=== PATIENT | female | born 1940 | race Caucasian/White ===

== ENCOUNTER 2016-10-31 16:19 | Inpatient (IN) | payer MEDICARE ==
[~2016-10-31] VITALS: Ht 170.2 cm; Wt 76.2 kg
[~2016-10-31 16:19] MED LIST: ALL220TA PO; ATOR10 PO; CENTTAB9 PO; FISH300C2 PO; LORT5TAB PO; MELO15TA2 PO; META800 PO; OYST500T77 PO
[2016-10-31 16:21] VITALS: BP 200/98; PULSE 76; RESP 17; TEMP 98.5; O2SAT 96
[2016-10-31] MEDS ORDERED: blood pressure pill (16:35)
[2016-10-31] MEDS ORDERED: LIPI10TA PO (16:35)
--- NOTE | 2016-10-31 16:36 | PD ---
HPI Chief Complaint: Neuro Symptoms/ Deficits Time Seen by Provider: 16:34 Travel History International Travel<30 days: No Contact w/Intl Traveler<30days: No Traveled to known affect area: No History of Present Illness HPI The patient is a 76-year-old female who presents to the emergency department for nearly diagnosed brain tumor. The patient states that she was having difficulty walking and was walking like a "drunk", would walk to the right, when she went and saw her physician and had an outpatient MRI. The patient's primary physician is Dr. Kandi Bruce. The patient had an outpatient MRI that was performed on October 31, 2016 at 2:51 PM, was advised to come the emergency department if she has an occipital brain tumor. The patient was referred to the emergency department to be evaluated by the neurosurgeon, Dr. Corona. The patient does have a history of hypertension and hyperlipidemia. She denies any weakness or numbness of the upper or lower extremities, denies any difficulty with complex task of the upper hands, simply states that she had difficulty walking at times. The patient does have a remote history of breast cancer with previous left mastectomy. The patient symptoms are moderate, apparently exacerbated by and newly diagnosed brain tumor, and there are no current alleviating factors. PFSH Past Medical History Arthritis: Yes Blood Disorders: No Cancer: Yes (BREAST) Cardiovascular Problems: Yes High Cholesterol: Yes Chemotherapy: Yes Chest Pain: Yes Diminished Hearing: No Endocrine: No Genitourinary: No Immune Disorder: No Musculoskeletal: Yes Neurologic: No Psychiatric: No Reproductive: No Past Surgical History AICD: No Gynecologic Surgery: Yes Hysterectomy: Yes Joint Replacement: No Pacemaker: No Other Surgery: Yes (LEFT MASTECTOMY 1996, PART OF COLON REMOVED 2005 ) Social History Alcohol Use: Yes (WINE OCCASIONALLY) Tobacco Use: No Substance Use: No Allergies-Medications (Allergen,Severity, Reaction): Coded Allergies: No Known Allergies (Verified , 01/02/07) Reported Meds & Prescriptions Reported Meds & Active Scripts Active Reported [blood pressure pill] DAILY Lipitor (Atorvastatin Calcium) 10 Mg Tab 10 Mg PO HS Review of Systems Except as stated in HPI: all other systems reviewed are Neg General / Constitutional: No: Fever HENT: No: Headaches Cardiovascular: No: Chest Pain or Discomfort Respiratory: No: Shortness of Breath Gastrointestinal: No: Nausea, Vomiting, Abdominal Pain Genitourinary: No: Incontinence Neurologic: Positive: Ataxia, No: Headache, Paresthesia, Sensory Disturbance Physical Exam Narrative GENERAL: Awake, alert, very pleasant 76-year-old female who appears her stated age and is in no acute respiratory distress. SKIN: Focused skin assessment warm/dry. HEAD: Atraumatic. Normocephalic. EYES: Pupils equal and round. No scleral icterus. No injection or drainage. ENT: No nasal bleeding or discharge. Mucous membranes pink and moist. NECK: Trachea midline. No JVD. CARDIOVASCULAR: Regular rate and rhythm. No murmur appreciated. RESPIRATORY: No accessory muscle use. Clear to auscultation. Breath sounds equal bilaterally. GASTROINTESTINAL: Abdomen soft, non-tender, nondistended. Hepatic and splenic margins not palpable. MUSCULOSKELETAL: No obvious deformities. No clubbing. No cyanosis. No edema. NEUROLOGICAL: Awake and alert. No obvious cranial nerve deficits. Motor grossly within normal limits. Normal speech. Finger to nose is normal. Patient is able to ambulate in a straight line toward me in the room. She is alert and oriented 4. PSYCHIATRIC: Appropriate mood and affect; insight and judgment normal. Data Data Last Documented VS Vital Signs Date Time Temp Pulse Resp B/P Pulse Ox O2 Delivery O2 Flow Rate FiO2 10/31/16 16:21 98.5 76 17 200/98 96 Orders Complete Blood Count With Diff (10/31/16 16:36) Comprehensive Metabolic Panel (10/31/16 16:36) Act Partial Throm Time (Ptt) (10/31/16 16:36) Prothrombin Time / Inr (Pt) (10/31/16 16:36) Type And Screen (10/31/16 16:36) Electrocardiogram (10/31/16 ) Chest, Single Ap (10/31/16 ) Dexamethasone Inj (Decadron Inj) (10/31/16 16:45) Consult Neurosurgery (10/31/16 ) Admit To Inpatient (10/31/16 ) Code Status (10/31/16 16:50) Vital Signs (Adult) Q4H (10/31/16 16:50) Activity Bed Rest (10/31/16 16:50) Diet Heart Healthy (10/31/16 Dinner) Sodium Chloride 0.9% Flush (Ns Flush) (10/31/16 17:00) Sodium Chloride 0.9% Flush (Ns Flush) (10/31/16 21:00) Acetaminophen (Tylenol) (10/31/16 17:00) Ondansetron Inj (Zofran Inj) (10/31/16 17:00) Comprehensive Metabolic Panel (11/01/16 06:00) Complete Blood Count With Diff (11/01/16 06:00) Pt Request For Service (10/31/16 16:50) Case Management Consult (10/31/16 16:50) Scd Bilateral/Knee High MAYE.BID (10/31/16 16:50) Serg Bilateral/Knee High MAYE.QSHIFT (10/31/16 16:50) Acetaminophen (Tylenol) (10/31/16 17:00) Naloxone Inj (Narcan Inj) (10/31/16 17:00) Inpatient Certification (10/31/16 ) Dexamethasone Inj (Decadron Inj) (11/01/16 09:00) Hydralazine Inj (Apresoline Inj) (10/31/16 17:00) Ct Thorax/ Chest W Iv Contrast (10/31/16 ) Ct Abd/Pel W Iv Contrast(Rout) (10/31/16 ) Pantoprazole Inj (Protonix Inj) (11/01/16 09:00) (Hub Use Only)Inp Phy Cons/Ref (10/31/16 ) Admit Order (Ed Use Only) (10/31/16 17:35) Labs Laboratory Tests Test 10/31/16 16:45 White Blood Count 11.5 TH/MM3 Red Blood Count 4.25 MIL/MM3 Hemoglobin 13.0 GM/DL Hematocrit 39.9 % Mean Corpuscular Volume 94.0 FL Mean Corpuscular Hemoglobin 30.7 PG Mean Corpuscular Hemoglobin 32.7 % Concent Red Cell Distribution Width 13.9 % Platelet Count 276 TH/MM3 Mean Platelet Volume 9.3 FL Neutrophils (%) (Auto) 55.4 % Lymphocytes (%) (Auto) 35.9 % Monocytes (%) (Auto) 7.0 % Eosinophils (%) (Auto) 1.3 % Basophils (%) (Auto) 0.4 % Neutrophils # (Auto) 6.3 TH/MM3 Lymphocytes # (Auto) 4.1 TH/MM3 Monocytes # (Auto) 0.8 TH/MM3 Eosinophils # (Auto) 0.2 TH/MM3 Basophils # (Auto) 0.0 TH/MM3 CBC Comment DIFF FINAL Differential Comment Prothrombin Time 10.0 SEC Prothromb Time International 0.9 RATIO Ratio Activated Partial 21.2 SEC Thromboplast Time Total Bilirubin 0.6 MG/DL Alkaline Phosphatase 68 U/L Total Protein 8.4 GM/DL Blood Type A POSITIVE Antibody Screen NEGATIVE [facility] Medical Decision Making Medical Screen Exam Complete: Yes Emergency Medical Condition: Yes Medical Record Reviewed: Yes Interpretation(s) Last Impressions Chest X-Ray 10/31/16 0000 Signed Impressions: Service Date/Time: Monday, October 31, 2016 17:17 - CONCLUSION: 1. Medial right apical parenchymal opacity which may reflect pneumonia in the appropriate clinical setting. Followup to resolution is recommended to exclude mass. Tucker Day MD EKG reveals normal sinus rhythm with a rate of 65. No ischemic changes or ectopy noted. Laboratory Tests Test 10/31/16 16:45 White Blood Count 11.5 TH/MM3 Red Blood Count 4.25 MIL/MM3 Hemoglobin 13.0 GM/DL Hematocrit 39.9 % Mean Corpuscular Volume 94.0 FL Mean Corpuscular Hemoglobin 30.7 PG Mean Corpuscular Hemoglobin 32.7 % Concent Red Cell Distribution Width 13.9 % Platelet Count 276 TH/MM3 Mean Platelet Volume 9.3 FL Neutrophils (%) (Auto) 55.4 % Lymphocytes (%) (Auto) 35.9 % Monocytes (%) (Auto) 7.0 % Eosinophils (%) (Auto) 1.3 % Basophils (%) (Auto) 0.4 % Neutrophils # (Auto) 6.3 TH/MM3 Lymphocytes # (Auto) 4.1 TH/MM3 Monocytes # (Auto) 0.8 TH/MM3 Eosinophils # (Auto) 0.2 TH/MM3 Basophils # (Auto) 0.0 TH/MM3 CBC Comment DIFF FINAL Differential Comment Prothrombin Time 10.0 SEC Prothromb Time International 0.9 RATIO Ratio Activated Partial 21.2 SEC Thromboplast Time Total Bilirubin 0.6 MG/DL Alkaline Phosphatase 68 U/L Total Protein 8.4 GM/DL Blood Type A POSITIVE Antibody Screen NEGATIVE Differential Diagnosis Differential diagnosis includes brain tumor, occipital infarct, brainstem infarct, pontine edema lysis, hyponatremia, metastatic cancer. Narrative Course IV was established, labs are drawn and sent, and the patient was placed on cardiac telemetry monitoring and continuous pulse oximetry monitoring. Preop labs were obtained including a PT/INR, PTT, EKG, chest x-ray, and type and screen. I discussed the patient with the neurosurgeon, Dr. Corona, in the emergency department. I reviewed the patient's MRI that she had performed on October 31, 2016. The patient will be kept nothing by mouth, was administered Decadron 8 mg intravenously after discussion with Dr. Corona. A call was placed to [facility], who covers for Dr. Kandi Bruce, for admission. Physician Communication Physician Communication I discussed the patient with Dr. Corona who is aware that the patient is in the emergency department. A call was placed to [facility] for admission. I discussed the patient with Dr. Emery who agrees with admission. Diagnosis Primary Impression: Brain mass Admitting Information Admitting Physician Requests: Admit Condition: Stable Justino Otero MD Oct 31, 2016 16:35
[2016-10-31] MEDS ORDERED: DEXAMETHASONE SOD PHOS 4 MG/ML VIAL IV PUSH ONE (16:45)
--- NOTE | 2016-10-31 16:57 | HHI.HP ---
[facility] Service [facility] Primary Care Physician Kandi Bruce MD Admission Diagnosis Diagnoses: (1) Brain mass (2) Benign labile hypertension (3) Hyperlipidemia Chief Complaint: unsteady on her heet Travel History International Travel<30 Days: No Contact w/Intl Traveler <30 Da: No Traveled to Known Affected Are: No History of Present Illness 76-year-old female with a history of breast cancer was seen today ED by her PCP for evaluation of abnormal brain MRI with finding of a brain mass. Patient states, 2 days ago she woke up feeling generally weak associated with some malaise throughout the day and she also noticed some unsteady gait with ambulation however has no dizziness, vertigo or lightheadedness. On Monday, 06/17 she continued to feel weak and tired with more persistent gait unsteadiness. Today, 10/31/16 patient decided to go see her PCP will send her for MRI of the brain. With the finding of brain mass, patient was sent to the ED for further evaluation. She denies feeling sick, shortness of breath or chest pain. She has no visual change or headaches. Review of Systems Except as stated in HPI: all other systems reviewed are Neg Past Family Social History Past Medical History Arthritis: Yes Blood Disorders: No Cancer: Yes (BREAST) Cardiovascular Problems: Yes High Cholesterol: Yes Chemotherapy: Yes Past Surgical History Hysterectomy: Yes Other Surgery: Yes (LEFT MASTECTOMY 1996, PART OF COLON REMOVED 2005 ) Allergies: Coded Allergies: No Known Allergies (Verified , 01/02/07) Social History Alcohol Use: Yes (WINE OCCASIONALLY) Tobacco Use: No Substance Use: No Physical Exam Vital Signs Vital Signs Date Time Temp Pulse Resp B/P Pulse Ox O2 Delivery O2 Flow Rate FiO2 10/31/16 16:21 98.5 76 17 200/98 96 Physical Exam GENERAL: This is a well-nourished, well-developed patient, in no apparent distress. SKIN: No rashes, ecchymoses or lesions. Cool and dry. HEAD: Atraumatic. Normocephalic. No temporal or scalp tenderness. EYES: Pupils equal round and reactive. Extraocular motions intact. No scleral icterus. No injection or drainage. ENT: Nose without bleeding, purulent drainage or septal hematoma. Throat without erythema, tonsillar hypertrophy or exudate. Uvula midline. Airway patent. NECK: Trachea midline. No JVD or lymphadenopathy. Supple, nontender, no meningeal signs. CARDIOVASCULAR: Regular rate and rhythm without murmurs, gallops, or rubs. RESPIRATORY: Clear to auscultation. Breath sounds equal bilaterally. No wheezes , rales, or rhonchi. GASTROINTESTINAL: Abdomen soft, non-tender, nondistended. No hepato-splenomegaly , or palpable masses. No guarding. MUSCULOSKELETAL: Extremities without clubbing, cyanosis, or edema. No joint tenderness, effusion, or edema noted. No calf tenderness. Negative Homans sign bilaterally. NEUROLOGICAL: Awake and alert. Cranial nerves II through XII intact. Motor and sensory grossly within normal limits. Five out of 5 muscle strength in all muscle groups. Normal speech. Imaging Outside brain MRI 10/31/16: The study reveals an approximately 28 mm diameter by 37 mm height probable partial cystic lesion at the left cerebellar hemisphere extending to the anterior vermis. There is compression of the fourth ventricle but no significant hydrocephalus. The lesion abuts the brainstem without significant brainstem compression. There is anterior displacement of the cervical medullary junction. Last Impressions Chest X-Ray 10/31/16 0000 Signed Impressions: Service Date/Time: Monday, October 31, 2016 17:17 - CONCLUSION: 1. Medial right apical parenchymal opacity which may reflect pneumonia in the appropriate clinical setting. Followup to resolution is recommended to exclude mass. Tucker Day MD Assessment and Plan Problem List: (1) Brain mass ICD Code: G93.9 Status: Acute (2) Benign labile hypertension ICD Code: I10 Status: Acute (3) Hyperlipidemia ICD Code: E78.5 Status: Acute Assessment and Plan 76-year-old female with Left cerebellar lesion, Brain MRI review by me with finding of impinging on the fourth ventricle without sign of hydrocephalus Patient with a history of breast cancer therefore will check chest CT, CT abdomen/pelvic Consult neurosurgery as well as medical oncology Start Decadron IV scheduled PT consult to treat and eval Labile benign hypertension Start Lopressor 25 mg every 12 hours Hyperlipidemia Resume statin 10 mg at bedtime DVT prophylaxis: Bilateral SCDs GI prophylaxis: PPI Code Status Full code Discussed Condition With Patient, ED physician Physician Certification 2 Midnight Certification Type: Admission for Inpatient Services Order for Inpatient Services The services are ordered in accordance with Medicare regulations or non- Medicare payer requirements, as applicable. In the case of services not specified as inpatient-only, they are appropriately provided as inpatient services in accordance with the 2-midnight benchmark. Estimated LOS (days): 2 days is the estimated time the patient will need to remain in the hospital, assuming treatment plan goals are met and no additional complications. Post-Hospital Plan: Not yet determined Ivan Emery MD Oct 31, 2016 16:57
[2016-10-31] MEDS ORDERED: SODIUM CHLORIDE 0.9% FLUSH 10 ML FLUSH IV FLUSH PRN (17:00)
[2016-10-31] MEDS ORDERED: ONDANSETRON HCL 4 MG/2 ML VIAL IVP PRN (17:00)
[2016-10-31] MEDS ORDERED: hydrALAZINE HCL 20 MG/ML VIAL IV PUSH PRN (17:00)
[2016-10-31] MEDS ORDERED: ACETAMINOPHEN 325 MG TAB PO PRN ×2 (17:00)
[2016-10-31] MEDS ORDERED: NALOXONE HCL 0.4 MG/ML AMP IV PRN (17:00)
--- NOTE | 2016-10-31 17:27 | PD.CONS ---
History of Present Illness Service Neurosurgery Consult Requested By Ivan Emery M.D. Reason for Consult Brain tumor Primary Care Physician Kandi Bruce MD Diagnoses: History of Present Illness Ms. Jacinto is a pleasant 76-year-old female who states that 2 days ago she awoke feeling generally weak, positive malaise throughout the day. She was a little unsteady with her ambulation. No definite vertigo. She slept for a couple of hours late Monday morning, and did little the rest of the day. She had no significant headache, visual symptoms, speech difficulty, memory loss or confusion. Yesterday, on 10/30/2016, she again felt very weak and tired throughout the day with some persistent gait unsteadiness. She states that she felt "spacey", difficulty concentrating. She helped out in [employer] in the morning, but then went home and again rested for most of the day. She was seen by her primary care physician this morning, and sent for an MRI which has revealed a brain lesion. She has subsequently reported to the emergency room for further evaluation. She continues to deny any headache, visual symptoms. She still feels some difficulty concentrating, but no significant speech deficit. There is no pain weakness and numbness in the extremities. No significant neck pain. She has chronic back pain which has not changed recently Review of Systems Constitutional: COMPLAINS OF: Fatigue, DENIES: Fever, Weight loss, Dizziness Eyes: DENIES: Blurred vision, Diplopia Ears, nose, mouth, throat: DENIES: Hearing loss, Vertigo Respiratory: DENIES: Cough, Shortness of breath Cardiovascular: DENIES: Chest pain, Palpitations Gastrointestinal: DENIES: Abdominal pain, Nausea, Vomiting Musculoskeletal: COMPLAINS OF: Joint pain, Back pain, DENIES: Neck pain Hematologic/lymphatic: DENIES: Bruising Neurologic: COMPLAINS OF: Abnormal gait, Poor Balance, DENIES: Headache, Localized weakness, Speech Problems Psychiatric: DENIES: Anxiety, Confusion Past Family Social History Allergies: Coded Allergies: No Known Allergies (Verified , 01/02/07) Past Medical History Previous history of breast cancer, treated with left mastectomy. Hypertension Hypercholesterolemia Arthritis Past Surgical History Left mastectomy for breast cancer Partial colectomy-states she had a "precancerous" lesion Hysterectomy Reported Medications Reported Meds & Active Scripts Active Reported [blood pressure pill] DAILY Lipitor (Atorvastatin Calcium) 10 Mg Tab 10 Mg PO HS Family History Her father of myocardial infarction Her brother from myocardial infarction Her mother from leukemia Social History She smokes 1-1/2 pack cigarettes a day up until the mid 90s. She previously drank alcohol occasionally, but has not for several years. She lives alone Physical Exam Vital Signs Vital Signs Date Time Temp Pulse Resp B/P Pulse Ox O2 Delivery O2 Flow Rate FiO2 10/31/16 16:21 98.5 76 17 200/98 96 Physical Exam GENERAL: This is a well-nourished, well-developed patient, in no apparent distress. SKIN: No rashes, ecchymoses or lesions. Cool and dry. HEAD: Atraumatic. Normocephalic. No temporal or scalp tenderness. EYES: Sclerae are clear and nonicteric ENT: Upper and lower dentures. Oropharynx clear. Moderate cerumen external auditory canals. No facial edema or ecchymosis. NECK: Trachea midline. No JVD or lymphadenopathy. Supple, nontender, no meningeal signs. CARDIOVASCULAR: Regular rate and rhythm without murmurs, gallops, or rubs. RESPIRATORY: Clear to auscultation. Breath sounds equal bilaterally. No wheezes , rales, or rhonchi. GASTROINTESTINAL: Abdomen soft, non-tender, nondistended. No hepato-splenomegaly , or palpable masses. No guarding. MUSCULOSKELETAL: Extremities without cyanosis or edema. Posterior tibial pulse 2+ bilateral. Mild to moderate arthritic changes in the hands NEUROLOGICAL: Awake and alert Oriented X 3 Speech is clear Conversant and appropriate Follow simple commands well Answers questions appropriately Reasonable judgment and insight Recent and remote memory are intact No evidence of anxiety or depression Pupils are equal and reactive to accommodation. Extra-ocular movements, visual murillo to confrontation, facial sensorimotor, tongue, palate, sternocleidomastoid testing, hearing to finger rub testing, and bilateral shoulder shrug are all intact. Mild horizontal nystagmus with right greater than left lateral gaze Sensation is intact to light touch in all extremities Strength normal major flexion and extension groups all extremities Ovidio's absent bilaterally No ankle clonus Plantar responses absent bilateral Fine motor movements are mildly impaired in the right upper extremity. She has mild dysmetria and some shaking in the right upper extremity with finger to nose testing. Imaging 10/31/2016 MRI brain images have been reviewed with the patient. The study reveals an approximately 28 mm diameter by 37 mm height probable partial cystic lesion at the left cerebellar hemisphere extending to the anterior vermis. There is compression of the fourth ventricle but no significant hydrocephalus. The lesion abuts the brainstem without significant brainstem compression. There is anterior displacement of the cervical medullary junction. 10/31/16 initial review of patient's chest x-ray reveals a probable right apical mass. Assessment and Plan Assessment and Plan Impression: 1. Left cerebellar lesion, impinging on the fourth ventricle without sign of hydrocephalus on MRI of 10/31/2016. 2. History of breast cancer 3. Hypertension 4. Hypercholesterolemia Recommendations: The MRI images were reviewed with the patient in the emergency room today. I advised her the risk of obstructive hydrocephalus, as well as progressive brainstem and cerebellar mass effect. She will be admitted for close vital signs and neurologic checks. CT scan of the chest and abdomen will be obtained to assess for possible primary lesion. Oncology consult She has been started on Decadron IV with Protonix for ulcer prophylaxis. Physical therapy for gait assessment Fernando Corona MD Oct 31, 2016 17:27
--- NOTE | 2016-10-31 17:30 | RADRPT ---
EXAM DATE/TIME: 10/31/2016 17:17 [facility] COMPARISON: No previous studies available for comparison. INDICATIONS : Cough. MEDICAL HISTORY : None. SURGICAL HISTORY : None. ENCOUNTER: Initial ACUITY: 1 day PAIN SCORE: 0/10 LOCATION: Bilateral chest FINDINGS: Medial right apical opacity. Cardiomediastinal contours are within normal limits. Bony thorax is inta ct. CONCLUSION: 1. Medial right apical parenchymal opacity which may reflect pneumonia in the appropriate clinical se tting. Followup to resolution is recommended to exclude mass. Tucker Day MD on October 31, 2016 at 17:25 Board Certified Radiologist. This report was verified electronically.
[2016-10-31 17:46] LABS: APTT (PATIENT) 21.2 SEC (24.3-30.1); INTERNATIONAL NORMALIZED RATIO 0.9 RATIO
[2016-10-31 17:47] LABS: AUTOMATED NEUTROPHIL # 6.3 TH/MM3 (1.8-7.7); BASOPHIL % 0.4 % (0.0-2.0); EOSINOPHIL # 0.2 TH/MM3 (0-0.4); EOSINOPHIL % 1.3 % (0.0-4.0); HEMATOCRIT 39.9 % (35.0-46.0); HEMO FLAGS DIFF FINAL; LYMPH % 35.9 % (9.0-44.0); LYMPHOCYTE # 4.1 TH/MM3 (1.0-4.8); MEAN CORPUSCULAR HEMOGLOBIN 30.7 PG (27.0-34.0); MEAN CORPUSCULAR HGB CONC 32.7 % (32.0-36.0); NEUT % 55.4 % (16.0-70.0); PLATELET COUNT 276 TH/MM3 (150-450); RED BLOOD COUNT 4.25 MIL/MM3 (4.00-5.30); RED CELL DISTRIBUTION WIDTH 13.9 % (11.6-17.2); WHITE BLOOD COUNT 11.5 TH/MM3 (4.0-11.0)
[2016-10-31 20:12] VITALS: BP 154/84; PULSE 59; RESP 18; TEMP 97.7; O2SAT 98
[2016-10-31] MEDS: SODIUM CHLORIDE 0.9% FLUSH 10 ML FLUSH IV FLUSH SCH (21:31)
[2016-10-31] MEDS: ATORVASTATIN 10 MG TAB PO SCH (21:31)
[2016-10-31] MEDS: METOPROLOL TARTRATE 25 MG TAB PO SCH (21:31)
[2016-10-31 21:34] VITALS: PULSE 66; O2SAT 97
[2016-11-01 00:13] VITALS: BP 114/58; PULSE 59; RESP 18; TEMP 97.3; O2SAT 97
[2016-11-01 05:05] LABS: AUTOMATED NEUTROPHIL # 7.9 TH/MM3 (1.8-7.7); BASOPHIL % 0.1 % (0.0-2.0); HEMATOCRIT 35.4 % (35.0-46.0); HEMO FLAGS DIFF FINAL; LYMPHOCYTE # 1.6 TH/MM3 (1.0-4.8); MEAN CELL VOLUME 92.6 FL (80.0-100.0); MEAN CORPUSCULAR HEMOGLOBIN 30.9 PG (27.0-34.0); MEAN CORPUSCULAR HGB CONC 33.3 % (32.0-36.0); MONO % 2.4 % (0.0-8.0); NEUT % 81.5 % (16.0-70.0); PLATELET COUNT 241 TH/MM3 (150-450); RED BLOOD COUNT 3.82 MIL/MM3 (4.00-5.30); RED CELL DISTRIBUTION WIDTH 13.5 % (11.6-17.2); WHITE BLOOD COUNT 9.7 TH/MM3 (4.0-11.0)
[2016-11-01 05:24] LABS: ANION GAP 7 MEQ/L (5-15); AST (GOT) 20 U/L (15-37); BICARBONATE 26.8 MEQ/L (21.0-32.0); BLOOD UREA NITROGEN 23 MG/DL (7-18); CHLORIDE 105 MEQ/L (98-107); GLOMERULAR FILTRATION RATE 55 ML/MIN (>89); POTASSIUM 4.2 MEQ/L (3.5-5.1); SODIUM (NA) 139 MEQ/L (136-145)
[2016-11-01 05:29] LABS: ALKALINE PHOSPHATASE 58 U/L (45-117); ALT (GPT) 25 U/L (10-53); TOTAL BILIRUBIN ADULT 0.5 MG/DL (0.2-1.0)
[2016-11-01] MEDS: DEXAMETHASONE SOD PHOS 4 MG/ML VIAL IV PUSH SCH ×3 (07:56→20:21)
[2016-11-01] MEDS: PANTOPRAZOLE SODIUM 40 MG VIAL IV PUSH SCH (07:56)
[2016-11-01] MEDS: SODIUM CHLORIDE 0.9% FLUSH 10 ML FLUSH IV FLUSH SCH ×2 (07:56→20:21)
[2016-11-01] MEDS: METOPROLOL TARTRATE 25 MG TAB PO SCH ×2 (07:56→20:20)
[2016-11-01 08:00] VITALS: BP 136/94; PULSE 64; RESP 16; TEMP 97.1; O2SAT 95
[2016-11-01] MEDS ORDERED: IOHEXOL 350 MG/ML 10 ML VIAL (for RAD DIAG) IV ONE (08:58)
--- NOTE | 2016-11-01 09:12 | RADRPT ---
EXAM DATE/TIME: 11/01/2016 08:44 [facility] COMPARISON: CT ABDOMEN & PELVIS W CONTRAST, November 01, 2016, 8:40. CHEST SINGLE AP, October 31, 2016, 17:17. INDICATIONS : Brain lesion, possible metastatic, history of breast cancer. IV CONTRAST: 100 cc Omnipaque 350 (iohexol) IV ; Cumulative dose for multiple exams. RADIATION DOSE: 9.22 CTDIvol (mGy) ; Combined studies - Thorax/Abdomen/Pelvis MEDICAL HISTORY : Carcinoma, breast. Cardiovascular disease SURGICAL HISTORY : Hysterectomy. ENCOUNTER: Initial ACUITY: 1 day PAIN SCALE: 4/10 LOCATION: Bilateral chest TECHNIQUE: Volumetric scanning of the chest was performed. Using automated exposure control and adjustment of t he mA and/or kV according to patient size, radiation dose was kept as low as reasonably achievable to obtain optimal diagnostic quality images. DICOM format image data is available electronically for review and comparison. FINDINGS: The examination demonstrates an irregular soft tissue mass in the right upper lobe and right lung ape x abutting the pleura superiorly laterally and medially. This measures on axial image 16, 7.5 x 5.5 c m in transverse dimension. There is also a groundglass nodule in the left upper lobe measuring 2.6 cm on 17. Right lower lobe a noncalcified mass measuring 1.5 m is present. The patient has had previous left mastectomy. Thyroid unremarkable. 7 mm right paratracheal node. No pleural or pericardial effus ions are seen. There is a mass of the left adrenal gland lateral limb measuring 1.6 x 1.9 cm in AP an d transverse dimension as well as a 1.1 cm left adrenal lateral limb mass. There is no axillary adeno subhash. The osseous structures are intact. There is a probable bone island though nonspecific scleroti c subcentimeter focus at T5 as well as 2 sclerotic foci at T11. CONCLUSION: 1. Dominant irregular right upper lobe and right apical pulmonary mass suspicious for primary broncho genic neoplasm until proven otherwise. 2. A right lower lobe mass as well as a groundglass nodule in the left upper lobe are also noted, pos sibly represent metastatic disease. 3. Indeterminate though suspicious left adrenal nodules concerning for metastatic disease. 4. Sclerotic bone lesions are nonspecific and may reflect bone islands versus tiny sclerotic metastas es. Robert Toscano MD on November 01, 2016 at 9:04 Board Certified Radiologist. This report was verified electronically.
--- NOTE | 2016-11-01 09:14 | RADRPT ---
EXAM DATE/TIME: 11/01/2016 08:40 [place] COMPARISON: CT THORAX W CONTRAST, November 01, 2016, 8:44. CHEST SINGLE AP, October 31, 2016, 17:17. INDICATIONS : Brain lesion, possible metastatic, history of breast cancer. IV CONTRAST: 100 cc Omnipaque 350 (iohexol) IV ; Cumulative dose for multiple exams. ORAL CONTRAST: No oral contrast ingested. RADIATION DOSE: 9.22 CTDIvol (mGy) ; Combined studies - Thorax/Abdomen/Pelvis MEDICAL HISTORY : Carcinoma, breast. Cardiovascular disease SURGICAL HISTORY : Hysterectomy. ENCOUNTER: Initial ACUITY: 1 day PAIN SCALE: 4/10 LOCATION: upper quadrant TECHNIQUE: Volumetric scanning of the abdomen and pelvis was performed. Using automated exposure control and ad justment of the mA and/or kV according to patient size, radiation dose was kept as low as reasonably achievable to obtain optimal diagnostic quality images. DICOM format image data is available electro nically for review and comparison. FINDINGS: Previous left mastectomy. No pleural or pericardial effusions. Liver, gallbladder, bilateral kidneys and right adrenal gland are unremarkable. There are 2 masses associated with the left adrenal gland i ncluding an 11 mm mass lateral limb and a 1.9 cm mass lateral limb. Spleen, pancreas, stomach, urinar y bladder are unremarkable. The patient is status post hysterectomy. There is previous surgery to the right colon. No focal masses are seen within the small or large bowel. No lymphadenopathy. Atheroscl erotic plaquing of the aorta and iliac vessels. There is a mass in the right lower lobe on axial imag e #3 measuring 1.1 m. The osseous structures demonstrate 2 tiny sclerotic foci at the T10 vertebral b qian level. Degenerative changes are noted. CONCLUSION: 1. Probable tiny bone island at T10 however nonspecific. 2. Right lower lobe nodule. 3. Left adrenal nodules are identified concerning for metastatic disease until proven otherwise. Robert Toscano MD on November 01, 2016 at 9:09 Board Certified Radiologist. This report was verified electronically.
--- NOTE | 2016-11-01 09:34 | HHI.NSPN ---
History Chief Complaint: Cerebral mass Interval History Ms. Jacinto is a pleasant 76-year-old female who states that 2 days ago she awoke feeling generally weak, positive malaise throughout the day. She was a little unsteady with her ambulation. No definite vertigo. She slept for a couple of hours late Monday morning, and did little the rest of the day. She had no significant headache, visual symptoms, speech difficulty, memory loss or confusion. Yesterday, on 10/30/2016, she again felt very weak and tired throughout the day with some persistent gait unsteadiness. She states that she felt "spacey", difficulty concentrating. She helped out in hinduism in the morning, but then went home and again rested for most of the day. She was seen by her primary care physician this morning, and sent for an MRI which has revealed a brain lesion. She has subsequently reported to the emergency room for further evaluation. She continues to deny any headache, visual symptoms. She still feels some difficulty concentrating, but no significant speech deficit. There is no pain weakness and numbness in the extremities. No significant neck pain. She has chronic back pain which has not changed recently 11/01/16: Pt awake and alert. Denies headache, nausea, vomiting, paresthesias or weakness. Review of Systems General: Negative for: fever, chills, insomnia Respiratory: Negative for: shortness of breath, cough, sputum Cardiovascular: Negative for: chest pain Gastrointestinal: Negative for: nausea, vomitting, diarrhea, constipation Exam Results Vital Signs Date Time Temp Pulse Resp B/P Pulse Ox O2 Delivery O2 Flow Rate FiO2 11/01/16 08:00 97.1 64 16 136/94 95 Intake and Output 10/31/16 10/31/16 11/01/16 08:00 16:00 00:00 Intake Total 480 ml Balance 480 ml Physical Examination Resp: CTA bilaterally Heart: NSR no murmurs Abd: Soft positive bs Skin: No cyanosis or erythema Muscle: Moves all 4 extremities with symmetric strength Neuro: Pt awake and alert. Pupils equal 3mm bilaterally reactive bilaterally. Follows commands well. Speech clear and appropriate. Lab, Micro, Other Results Last Impressions Chest X-Ray 10/31/16 0000 Signed Impressions: Service Date/Time: Monday, October 31, 2016 17:17 - CONCLUSION: 1. Medial right apical parenchymal opacity which may reflect pneumonia in the appropriate clinical setting. Followup to resolution is recommended to exclude mass. Tucker Day MD Chest CT 10/31/16 0000 Signed Impressions: Service Date/Time: Tuesday, November 01, 2016 08:44 - CONCLUSION: 1. Dominant irregular right upper lobe and right apical pulmonary mass suspicious for primary bronchogenic neoplasm until proven otherwise. 2. A right lower lobe mass as well as a groundglass nodule in the left upper lobe are also noted, possibly represent metastatic disease. 3. Indeterminate though suspicious left adrenal nodules concerning for metastatic disease. 4. Sclerotic bone lesions are nonspecific and may reflect bone islands versus tiny sclerotic metastases. Robert Toscano MD Abdomen/Pelvis CT 10/31/16 0000 Signed Impressions: Service Date/Time: Tuesday, November 01, 2016 08:40 - CONCLUSION: 1. Probable tiny bone island at T10 however nonspecific. 2. Right lower lobe nodule. 3. Left adrenal nodules are identified concerning for metastatic disease until proven otherwise. Robert Toscano MD Laboratory Tests Test 10/31/16 11/01/16 16:45 04:44 White Blood Count 11.5 TH/MM3 9.7 TH/MM3 Red Blood Count 4.25 MIL/MM3 3.82 MIL/MM3 Hemoglobin 13.0 GM/DL 11.8 GM/DL Hematocrit 39.9 % 35.4 % Mean Corpuscular Volume 94.0 FL 92.6 FL Mean Corpuscular Hemoglobin 30.7 PG 30.9 PG Mean Corpuscular Hemoglobin 32.7 % 33.3 % Concent Red Cell Distribution Width 13.9 % 13.5 % Platelet Count 276 TH/MM3 241 TH/MM3 Mean Platelet Volume 9.3 FL 8.9 FL Neutrophils (%) (Auto) 55.4 % 81.5 % Lymphocytes (%) (Auto) 35.9 % 16.0 % Monocytes (%) (Auto) 7.0 % 2.4 % Eosinophils (%) (Auto) 1.3 % 0.0 % Basophils (%) (Auto) 0.4 % 0.1 % Neutrophils # (Auto) 6.3 TH/MM3 7.9 TH/MM3 Lymphocytes # (Auto) 4.1 TH/MM3 1.6 TH/MM3 Monocytes # (Auto) 0.8 TH/MM3 0.2 TH/MM3 Eosinophils # (Auto) 0.2 TH/MM3 0.0 TH/MM3 Basophils # (Auto) 0.0 TH/MM3 0.0 TH/MM3 CBC Comment DIFF FINAL DIFF FINAL Differential Comment Prothrombin Time 10.0 SEC Prothromb Time International 0.9 RATIO Ratio Activated Partial 21.2 SEC Thromboplast Time Blood Type A POSITIVE Antibody Screen NEGATIVE Sodium Level 139 MEQ/L Potassium Level 4.2 MEQ/L Chloride Level 105 MEQ/L Carbon Dioxide Level 26.8 MEQ/L Anion Gap 7 MEQ/L Blood Urea Nitrogen 23 MG/DL Creatinine 0.98 MG/DL Estimat Glomerular Filtration 55 ML/MIN Rate Random Glucose 140 MG/DL Calcium Level 9.5 MG/DL Total Bilirubin 0.5 MG/DL Aspartate Amino Transf 20 U/L (AST/SGOT) Alanine Aminotransferase 25 U/L (ALT/SGPT) Alkaline Phosphatase 58 U/L Total Protein 7.1 GM/DL Albumin 3.3 GM/DL 10/31/16 10/31/16 11/01/16 15:00 23:00 07:00 Intake Total 480 ml 280 ml Balance 480 ml 280 ml Intake Oral 480 ml 280 ml # Voids 1 2 Medical Decision Making Impression and Plan A: 76 y/o FM with posterior fossa neoplasm CT chest reveals lung mass CT abdomen/pelvis reveals left adrenal nodules P: Continue to monitor neuro exam Continue with workup. Dr. Corona was planning on surgery possibly depending on results/ workup. Ivan Larry Nov 01, 2016 09:34
--- NOTE | 2016-11-01 10:03 | PD.ONC.PN ---
Subjective Subjective Remarks Afebrile overnight. Resting in room in nad. Denies pain at present. Waiting to go down for CT. Objective Data Date Time Temp Pulse Resp B/P Pulse Ox O2 Delivery O2 Flow Rate FiO2 11/01/16 08:00 97.1 64 16 136/94 95 11/01/16 00:13 97.3 59 18 114/58 97 10/31/16 21:34 66 97 10/31/16 20:12 97.7 59 18 154/84 98 10/31/16 16:21 98.5 76 17 200/98 96 Result Diagram: 11/01/16 0444 11/01/16 0444 Laboratory Results Laboratory Tests Test 10/31/16 11/01/16 16:45 04:44 White Blood Count 11.5 TH/MM3 9.7 TH/MM3 Red Blood Count 4.25 MIL/MM3 3.82 MIL/MM3 Hemoglobin 13.0 GM/DL 11.8 GM/DL Hematocrit 39.9 % 35.4 % Mean Corpuscular Volume 94.0 FL 92.6 FL Mean Corpuscular Hemoglobin 30.7 PG 30.9 PG Mean Corpuscular Hemoglobin 32.7 % 33.3 % Concent Red Cell Distribution Width 13.9 % 13.5 % Platelet Count 276 TH/MM3 241 TH/MM3 Mean Platelet Volume 9.3 FL 8.9 FL Neutrophils (%) (Auto) 55.4 % 81.5 % Lymphocytes (%) (Auto) 35.9 % 16.0 % Monocytes (%) (Auto) 7.0 % 2.4 % Eosinophils (%) (Auto) 1.3 % 0.0 % Basophils (%) (Auto) 0.4 % 0.1 % Neutrophils # (Auto) 6.3 TH/MM3 7.9 TH/MM3 Lymphocytes # (Auto) 4.1 TH/MM3 1.6 TH/MM3 Monocytes # (Auto) 0.8 TH/MM3 0.2 TH/MM3 Eosinophils # (Auto) 0.2 TH/MM3 0.0 TH/MM3 Basophils # (Auto) 0.0 TH/MM3 0.0 TH/MM3 CBC Comment DIFF FINAL DIFF FINAL Differential Comment Prothrombin Time 10.0 SEC Prothromb Time International 0.9 RATIO Ratio Activated Partial 21.2 SEC Thromboplast Time Blood Type A POSITIVE Antibody Screen NEGATIVE Sodium Level 139 MEQ/L Potassium Level 4.2 MEQ/L Chloride Level 105 MEQ/L Carbon Dioxide Level 26.8 MEQ/L Anion Gap 7 MEQ/L Blood Urea Nitrogen 23 MG/DL Creatinine 0.98 MG/DL Estimat Glomerular Filtration 55 ML/MIN Rate Random Glucose 140 MG/DL Calcium Level 9.5 MG/DL Total Bilirubin 0.5 MG/DL Aspartate Amino Transf 20 U/L (AST/SGOT) Alanine Aminotransferase 25 U/L (ALT/SGPT) Alkaline Phosphatase 58 U/L Total Protein 7.1 GM/DL Albumin 3.3 GM/DL Administered Medications Medications (Trade) Dose Ordered Sig/Anu Route PRN Reason Start Time Stop Time Status Last Admin Dose Admin Sodium Chloride (NS Flush) 2 ml BID IV FLUSH 10/31/16 21:00 11/01/16 07:56 Dexamethasone Sodium Phosphate (Decadron Inj) 4 mg Q6H IV PUSH 11/01/16 09:00 11/01/16 07:56 Pantoprazole Sodium (Protonix Inj) 40 mg Q24H IV PUSH 11/01/16 09:00 11/01/16 07:56 Atorvastatin Calcium (Lipitor) 10 mg HS PO 10/31/16 21:00 10/31/16 21:31 Metoprolol Tartrate (Lopressor) 25 mg Q12HR PO 10/31/16 21:00 11/01/16 07:56 Objective Remarks GENERAL: Elderly female, upright about room in [facility]. SKIN: Warm and dry. HEAD: Normocephalic. EYES: No injection or drainage. Breast: s/p left mastectomy. no mass palpated. no LAD NECK: Supple, trachea midline. CARDIOVASCULAR: Regular rate and rhythm RESPIRATORY: Breath sounds equal bilaterally. No accessory muscle use. GASTROINTESTINAL: Abdomen soft, non-tender, nondistended. EXTREMITIES: No cyanosis NEUROLOGICAL: No obvious focal deficit. Awake, alert, and oriented x3. Assessment/Plan Problem List: (1) Brain mass Status: Acute Plan: 11/01: obtain CT C/A/P. if a primary lesion is found with CT C/A/P can obtain biopsy of that lesion, otherwise, may need to obtain biopsy of brain lesion UPDATE: CT shows pulmonary lesion, will ask invasive radiology to biopsy lesion and consult radiation oncology to follow along with us while awaiting pathology, discussed CT results with patient as well as need to obtain biopsy. Offered to call family to go over results but she would prefer to call them herself. h/o breast cancer with left mastectomy --MRI, 10/31 (RA) showed left cerebellar lesion-->2.8x2.9cm --on Decadron, --NS following. Assessment 76y/o female with brain mass, h/o breast cancer. Attending Statement offer no new c/o CT C/A/P = RUL and RLL lung masses, left adrenal gland mets. Most likely we are dealing with Primary lung ca with brain mets Consult IR for RUL lung mass bx Consult XRT for cranial radiation. will follow. Arely Bustillos Nov 01, 2016 10:03 Josiah Neal MD Nov 01, 2016 21:58
--- NOTE | 2016-11-01 10:05 | HHI.PR ---
Subjective Remarks Follow-up left brain mass and now possible lung cancer with metastases 11/01/16-patient seen and examined, denies any acute event overnight and still says she is fine. CT chest as well as abdomen/pelvics performed this morning Objective Vitals Vital Signs Date Time Temp Pulse Resp B/P Pulse Ox O2 Delivery O2 Flow Rate FiO2 11/01/16 08:00 97.1 64 16 136/94 95 11/01/16 00:13 97.3 59 18 114/58 97 10/31/16 21:34 66 97 10/31/16 20:12 97.7 59 18 154/84 98 10/31/16 16:21 98.5 76 17 200/98 96 I/O 10/31/16 10/31/16 10/31/16 11/01/16 11/01/16 11/01/16 07:00 15:00 23:00 07:00 15:00 23:00 Intake Total 480 ml 280 ml Balance 480 ml 280 ml Intake Oral 480 ml 280 ml # Voids 1 2 Result Diagram: 11/01/16 0444 11/01/16 0444 Imaging Last Impressions Chest X-Ray 10/31/16 0000 Signed Impressions: Service Date/Time: Monday, October 31, 2016 17:17 - CONCLUSION: 1. Medial right apical parenchymal opacity which may reflect pneumonia in the appropriate clinical setting. Followup to resolution is recommended to exclude mass. Tucker Day MD Chest CT 10/31/16 0000 Signed Impressions: Service Date/Time: Tuesday, November 01, 2016 08:44 - CONCLUSION: 1. Dominant irregular right upper lobe and right apical pulmonary mass suspicious for primary bronchogenic neoplasm until proven otherwise. 2. A right lower lobe mass as well as a groundglass nodule in the left upper lobe are also noted, possibly represent metastatic disease. 3. Indeterminate though suspicious left adrenal nodules concerning for metastatic disease. 4. Sclerotic bone lesions are nonspecific and may reflect bone islands versus tiny sclerotic metastases. Robert Toscano MD Abdomen/Pelvis CT 10/31/16 0000 Signed Impressions: Service Date/Time: Tuesday, November 01, 2016 08:40 - CONCLUSION: 1. Probable tiny bone island at T10 however nonspecific. 2. Right lower lobe nodule. 3. Left adrenal nodules are identified concerning for metastatic disease until proven otherwise. Robert Toscano MD Objective Remarks GENERAL: NAD SKIN: Warm and dry. HEAD: Normocephalic. EYES: No scleral icterus. No injection or drainage. NECK: Supple, trachea midline. No JVD or lymphadenopathy. CARDIOVASCULAR: Regular rate and rhythm without murmurs, gallops, or rubs. RESPIRATORY: Breath sounds equal bilaterally. No accessory muscle use. GASTROINTESTINAL: Abdomen soft, non-tender, nondistended. MUSCULOSKELETAL: No cyanosis, or edema. BACK: Nontender without obvious deformity. No CVA tenderness. A/P Problem List: (1) Brain mass ICD Code: G93.9 Status: Acute (2) Benign labile hypertension ICD Code: I10 Status: Acute (3) Hyperlipidemia ICD Code: E78.5 Status: Acute (4) Lung mass ICD Code: R91.8 Status: Acute Assessment and Plan 76-year-old female with Left cerebellar lesion, Brain MRI review by me with finding of impinging on the fourth ventricle without sign of hydrocephalus Patient with a history of breast cancer therefore will check chest CT, CT abdomen/pelvic Appreciate input from neurosurgery Medical oncology consultation pending Continue Decadron IV scheduled PT consult to treat and eval Lung mass with possible metastases -CT chest 11/01/16 noted and review by me with finding of Dominant irregular right upper lobe and right apical pulmonary mass suspicious for primary bronchogenic neoplasm until proven otherwise. A right lower lobe mass as well as a ground glass nodule in the left upper lobe are also noted, possibly represent metastatic disease. Indeterminate though suspicious left adrenal nodules concerning for metastatic disease -CT abdomen/pelvics 11/01/16 noted a review by me with finding of Right lower lobe nodule. Left adrenal nodules are identified concerning for metastatic disease until proven otherwise Interventional radiology consultation for possible CT guided biopsy versus pulmonary medicine for bronchoscopy -Oncology consultation pending Labile benign hypertension Continue Lopressor 25 mg every 12 hours Hyperlipidemia Continue statin 10 mg at bedtime DVT prophylaxis: Bilateral SCDs GI prophylaxis: PPI Ivan Emery MD Nov 01, 2016 10:04
--- NOTE | 2016-11-01 11:30 | MB ---
cc: SUNNY DELUCA M.D., MD DATE OF CONSULTATION 10/31/2016 REASON FOR CONSULTATION Consult requested by Dr. Corona for evaluation of brain mass with a history of breast cancer. HISTORY OF PRESENT ILLNESS This is a 76-year-old very pleasant white female. She has a history of left breast cancer; for that she had surgery either in 1995 or 1996. She stated that after the surgery she had 6 months of chemotherapy followed by 5 years of tamoxifen. All her treatment were in [place]. She went into remission. She states that recently she had difficulty walking. She went to see her primary physician, Dr. Kandi Bruce who order MRI of the brain which showed lesions in the brain. The patient was advice to come to ER . She is now admitted to the hospital. Dr. Corona, neurosurgeon, was consulted. CAT scan of the chest, abdomen and pelvis have been ordered. I have been asked to see the patient for further evaluation. REVIEW OF SYSTEMS The patient is complaining of weakness in her legs. She is also complaining of headaches and dizziness. The rest of the review of systems is negative. PAST MEDICAL HISTORY 1. Left breast cancer in 1995 or 1996. 2. Arthritis. 3. Coronary artery disease. 4. Hypercholesterolemia. PAST SURGICAL HISTORY 1. Left mastectomy in 1996. 2. Part of colon removed in 2005. Precancerous lesion. 3. Complete hysterectomy. ALLERGIES None. SOCIAL HISTORY The patient used to smoke cigrattes , quit in 2002. She drinks alcohol. FAMILY HISTORY Noncontributory. PHYSICAL EXAMINATION GENERAL: A well-developed, elderly white female in no apparent distress. VITAL SIGNS: Temperature 98.5, heart rate is 76, blood pressure 200/98, O2 saturation 96%. HEENT: PERRLA, EOMI. Anicteric. No oral lesions noted. NECK: Supple. LYMPHATICS: There is no cervical, supraclavicular or axillary lymphadenopathy noted. LUNGS: Clear. No wheezing, rhonchi or rales. HEART: Regular rate and rhythm. ABDOMEN: Soft, nontender. No hepatosplenomegaly. EXTREMITIES: No pedal edema. NEUROLOGY: Awake, alert, oriented x 3. SKIN: No significant lesions are noted. ASSESSMENT 1. Brain lesions most consistent with malignancy. The primary site is unknown. 2. History of left breast cancer status post left modified radical mastectomy in 1996 followed by chemotherapy and 5 years of tamoxifen. PLAN I have reviewed her available records and I have discussed with the patient regarding the lesions in the brain which are highly suspicious for malignancy. She had a mastectomy in 1996. There is no evidence of recurrence at the mastectomy site. CAT scan of the chest, abdomen and pelvis have been ordered to evaluate for the primary site. She is scheduled to have brain surgery if needed after the CAT scan results. Further recommendations once we have the pathology report and CAT scan reports available. Thank you for asking my opinion. MD IAN Cervantes/SSB /10:13 PM /11:23 AM MTDD
[2016-11-01 12:00] VITALS: BP 122/82; PULSE 59; RESP 17; TEMP 96.2; O2SAT 98
--- NOTE | 2016-11-01 13:22 | EKG ---
Date Performed: 10/31/2016 Time Performed: 17:30:06 PTAGE: 76 years EKG: Sinus rhythm NORMAL ECG PREVIOUS TRACING : 09/03/2016 23.26 Compared to prior tracing no significant change DOCTOR: Julio César Cross Interpretating Date/Time 11/01/2016 13:17:01
[2016-11-01 16:00] VITALS: BP 148/72; PULSE 55; RESP 18; TEMP 95.8; O2SAT 97
--- NOTE | 2016-11-01 16:46 | MB ---
cc: SUNNY NEAL M.D., RON KUHN,FAUZIA Garcia M.D. DATE OF CONSULTATION: 11/01/2016 DATE OF : 1940 REASON FOR CONSULTATION: HISTORY OF PRESENT ILLNESS: This is a 76 year-old female who presents with a past history of having had a left breast cancer dating back to 1996. She had a mastectomy followed by one year of chemotherapy when she was living in [place]. She has done well since that time. I believe she was also treated with hormonal therapy. She has otherwise in healthy, although in 2005, she had a partial colectomy for what was termed a precancerous lesion. This lady developed fairly acute onset of lightheadedness, vertigo and an unsteady gait. This was associated by extreme fatigue which is very unusual for her. She subsequently contacted Dr. Bruce, who coordinated an MRI of her brain. This was performed on 10/31/2016. This was at [facility]. This revealed a complex, cystic and solid appearing mass in the left cerebellar hemisphere and tonsillar region identified with a mass effect on the medulla and to a lesser extent, chandrakant, and effacement of the fourth ventricle. There is moderate amount of surrounding vasogenic edema with consideration to metastatic disease. This lady was subsequently admitted to the hospital for assessment. She was seen by Dr. Corona. He coordinated metastatic workup including oncology consult and has started her on steroids. He indicated that there was a risk of obstructive hydrocephalus. While in the hospital, she has had a CT scan of her chest as well as abdomen and pelvis. The CT chest reported dominant irregular right upper lobe and right apical pulmonary mass, suspicious for bronchogenic carcinoma. This measures 7.5 x 5.5 cm. There is also a ground glass nodule in the left upper lobe measuring 2.6 cm, and in the right lower lobe, a noncalcified 1.5 cm mass. There is a mass in the left adrenal gland measuring 1.6 x 1.9 cm. There was no axillary adenopathy. The osseous structures are intact. There is thought to be a bone island although nonspecific sclerotic subcentimeter focus at T5 as well as two sclerotic foci at T11. The CT scan of the abdomen revealed no new findings. Dr. Neal has seen this patient and they have ordered a CT directed needle biopsy which will hopefully be performed tomorrow. This lady is a previous smoker, having quit smoking in approximately the year 1999. She denies any pulmonary symptoms. She denies shortness of breath, cough, sputum or hemoptysis. She denies any bone pain. She has had no unexpected weight loss and her main symptom was sudden onset of acute fatigue and some ataxia. PAST MEDICAL HISTORY, PAST SURGICAL HISTORY: 1. Left breast cancer as previously noted. 2. Arthritis. 3. Coronary artery disease. 4. Hypercholesterolemia. 5. Partial colectomy in 2005. 6. Complete hysterectomy. ALLERGIES: NONE. SOCIAL HISTORY, FAMILY HISTORY: She currently denies smoking. The only relative she has living close by is in [place] and that is a nephew. She has two brothers who do not live locally. She moved her in [place] in approximately 1999 and she does have family members in [place]. SYSTEM REVIEW: This lady has had no fevers, sweats or weight loss. She denies eye, ear, nose or throat complaints, although she is aware of a cataract on the right and she has had cataract removal on the left with lens implant. She has no difficulty swallowing. No altered taste, no difficulty hearing or tinnitus. No neck pain. She denies pulmonary symptoms as noted above. She denies cardiovascular symptoms, denying palpitatons, chest pain or ankle swelling. She denies GI complaints of nausea, vomiting, diarrhea, melena or bloody stool. GENITOURINARY: Denies dysuria, hematuria, urgency or incontinence. MUSCULOSKELETAL: Denies anything but mild arthritic symptoms. NEUROLOGIC: Presented with fatigue and some ataxia which has resolved on steroids in the hospital. Denies headache, stroke, seizure or memory loss. ENDOCRINE: Denies hypothyroidism or diabetes. SKIN: No complaints. EXAMINATION: Today on exam she is alert, oriented, resting comfortably in bed in no distress. She was afebrile with a pulse of 59 and regular, respiratory rate of 17 and a blood pressure of 122/82, her pulse oximetry on room air was 98%. There is no evidence of jaundice. Her conjunctive and eyelids were normal. She had full EOMs. Cranial nerve testing II through XII was normal. There is no adenopathy in the head and neck. Her lung murillo were clear. Today without effusion, she had symmetrical air entry. She had a normal first and second heart sound without murmurs, rubs or bruits and her rate and rhythm was normal. There is no abdominal masses, tenderness or hepatosplenomegaly. No ankle edema. Power, tone in her lower limbs and upper limbs was 5/5. I did not get her up walking. REVIEW OF DATA Today I have reviewed this lady's MRI scan performed on an outpatient basis at [facility] and can confirm the finding that was discussed above. I have also reviewed her CT chest, abdomen and pelvis that has been performed in the hospital documenting the dominant mass in the right lung and the probable adrenal metastases on the left. There are other questionable lesions in her lungs. DISCUSSION I have reviewed with this lady our approach for treatment of her brain. I have told her that if Dr. Corona has serious concerns for impending hydrocephalus then surgical intervention would be recommended. Otherwise I would consider treating her with a stereotactic approach as this is a solitary posterior lesion. Because of the size of the lesion and the location, it will be difficult to give full doses. We will use a fractionated approach using 3-5 treatments. I believe this is her best chance of local control for this lesion. I have discussed this with her and briefly discussed whole brain radiation. If this should proved to be a small cell lung cancer then we would recommend whole brain radiation over a stereotactic approach and I have also discussed this with her. It is my belief this lady will be undergoing a biopsy tomorrow. Hopefully we will have the answer in the pathology very soon so that we can then move forward and coordinate her cranial radiation. Thank you again for asking us to see this lady. MD PALMER Kearney/MAIKOL /2:43 PM /4:13 PM
[2016-11-01 20:11] VITALS: BP 136/68; PULSE 66; RESP 20; TEMP 96.9; O2SAT 97
[2016-11-01] MEDS: ATORVASTATIN 10 MG TAB PO SCH (20:20)
[2016-11-02] VITALS (10 sets, daily range): BP systolic 110–179; BP diastolic 57–91; PULSE 56–65; RESP 16–19; TEMP 96.6–97.7; O2SAT 93–97
[2016-11-02] MEDS: DEXAMETHASONE SOD PHOS 4 MG/ML VIAL IV PUSH SCH ×4 (01:54→20:54)
[2016-11-02] MEDS: METOPROLOL TARTRATE 25 MG TAB PO SCH ×2 (09:00→20:17)
[2016-11-02] MEDS: SODIUM CHLORIDE 0.9% FLUSH 10 ML FLUSH IV FLUSH SCH ×2 (09:00→20:19)
--- NOTE | 2016-11-02 10:21 | PD.ONC.PN ---
Subjective Subjective Remarks Afebrile overnight Frustrated that she had coffee this morning and now she can't have a biopsy until 2 PM No acute complaints Objective Data Date Time Temp Pulse Resp B/P Pulse Ox O2 Delivery O2 Flow Rate FiO2 11/02/16 08:00 97.6 63 18 144/67 97 11/02/16 00:04 96.9 63 18 110/57 96 11/01/16 20:11 96.9 66 20 136/68 97 11/01/16 16:00 95.8 55 18 148/72 97 11/01/16 12:00 96.2 59 17 122/82 98 11/02/16 11/02/16 11/02/16 07:00 15:00 23:00 Intake Total 360 ml Balance 360 ml Result Diagram: 11/01/16 0444 11/01/16 0444 Administered Medications Medications (Trade) Dose Ordered Sig/Anu Route PRN Reason Start Time Stop Time Status Last Admin Dose Admin Sodium Chloride (NS Flush) 2 ml BID IV FLUSH 10/31/16 21:00 11/01/16 20:21 Acetaminophen (Tylenol) 650 mg Q6H PRN PO PAIN SCALE 1 TO 2 10/31/16 17:00 11/01/16 20:20 Dexamethasone Sodium Phosphate (Decadron Inj) 4 mg Q6H IV PUSH 11/01/16 09:00 11/02/16 01:54 Pantoprazole Sodium (Protonix Inj) 40 mg Q24H IV PUSH 11/01/16 09:00 11/01/16 07:56 Atorvastatin Calcium (Lipitor) 10 mg HS PO 10/31/16 21:00 11/01/16 20:20 Metoprolol Tartrate (Lopressor) 25 mg Q12HR PO 10/31/16 21:00 11/01/16 20:20 Objective Remarks GENERAL: Elderly female, sitting up on side of bed in no acute distress SKIN: Warm and dry. HEAD: Normocephalic. EYES: No injection or drainage. NECK: Supple, trachea midline. CARDIOVASCULAR: + S1/S2 RESPIRATORY: Clear posteriorly. Breathing unlabored. GASTROINTESTINAL: Abdomen soft, non-tender, nondistended. EXTREMITIES: No cyanosis. No edema. NEUROLOGICAL: No obvious focal deficit. Awake, alert, and oriented x3. Assessment/Plan Problem List: (1) Brain mass Status: Acute Plan: 11/02: Patient to have biopsy of lung lesion 2 PM today. Continue Decadron. Will await biopsy results h/o breast cancer with left mastectomy --MRI, 10/31 (RA) showed left cerebellar lesion-->2.8x2.9cm --on Decadron, --NS following. Assessment 76y/o female with brain mass, h/o breast cancer. Attending Statement no new c/o bx lung mass today. Pt can be d/c to home after the bx and will be fu as outpt. Linda Rose Nov 02, 2016 10:21 Josiah Neal MD Nov 02, 2016 12:48
--- NOTE | 2016-11-02 11:41 | HHI.PR ---
Subjective Remarks Follow-up left brain mass and now possible lung cancer with metastases 11/01/16-patient seen and examined, denies any acute event overnight and still says she is fine. CT chest as well as abdomen/pelvics performed this morning 11/02/16-patient seen and examined, denies any headaches, visual change or unsteadiness. Plan for CT-guided biopsy of the lung today Objective Vitals Vital Signs Date Time Temp Pulse Resp B/P Pulse Ox O2 Delivery O2 Flow Rate FiO2 11/02/16 08:00 97.6 63 18 144/67 97 11/02/16 00:04 96.9 63 18 110/57 96 11/01/16 20:11 96.9 66 20 136/68 97 11/01/16 16:00 95.8 55 18 148/72 97 11/01/16 12:00 96.2 59 17 122/82 98 I/O 11/01/16 11/01/16 11/01/16 11/02/16 11/02/16 11/02/16 07:00 15:00 23:00 07:00 15:00 23:00 Intake Total 280 ml 375 ml 480 ml 360 ml Balance 280 ml 375 ml 480 ml 360 ml Intake Oral 280 ml 375 ml 480 ml 360 ml IV Total 0 ml # Voids 2 4 2 2 Result Diagram: 11/01/16 0444 11/01/16 0444 Imaging Last Impressions Chest X-Ray 10/31/16 0000 Signed Impressions: Service Date/Time: Monday, October 31, 2016 17:17 - CONCLUSION: 1. Medial right apical parenchymal opacity which may reflect pneumonia in the appropriate clinical setting. Followup to resolution is recommended to exclude mass. Tucker Day MD Chest CT 10/31/16 0000 Signed Impressions: Service Date/Time: Tuesday, November 01, 2016 08:44 - CONCLUSION: 1. Dominant irregular right upper lobe and right apical pulmonary mass suspicious for primary bronchogenic neoplasm until proven otherwise. 2. A right lower lobe mass as well as a groundglass nodule in the left upper lobe are also noted, possibly represent metastatic disease. 3. Indeterminate though suspicious left adrenal nodules concerning for metastatic disease. 4. Sclerotic bone lesions are nonspecific and may reflect bone islands versus tiny sclerotic metastases. Robert Toscano MD Abdomen/Pelvis CT 10/31/16 0000 Signed Impressions: Service Date/Time: Tuesday, November 01, 2016 08:40 - CONCLUSION: 1. Probable tiny bone island at T10 however nonspecific. 2. Right lower lobe nodule. 3. Left adrenal nodules are identified concerning for metastatic disease until proven otherwise. Robert Toscano MD Objective Remarks GENERAL: NAD SKIN: Warm and dry. HEAD: Normocephalic. EYES: No scleral icterus. No injection or drainage. NECK: Supple, trachea midline. No JVD or lymphadenopathy. CARDIOVASCULAR: Regular rate and rhythm without murmurs, gallops, or rubs. RESPIRATORY: Breath sounds equal bilaterally. No accessory muscle use. GASTROINTESTINAL: Abdomen soft, non-tender, nondistended. MUSCULOSKELETAL: No cyanosis, or edema. BACK: Nontender without obvious deformity. No CVA tenderness. A/P Problem List: (1) Brain mass ICD Code: G93.9 Status: Acute (2) Benign labile hypertension ICD Code: I10 Status: Acute (3) Hyperlipidemia ICD Code: E78.5 Status: Acute (4) Lung mass ICD Code: R91.8 Status: Acute Assessment and Plan 76-year-old female with Left cerebellar lesion, Brain MRI with finding of impinging on the fourth ventricle without sign of hydrocephalus Patient with a history of breast cancer therefore will check chest CT, CT abdomen/pelvic Appreciate input from neurosurgery Medical/radiation oncology consultation appreciated Continue Decadron IV scheduled PT consult to treat and eval Lung mass with possible metastases -CT chest 11/01/16 noted and review by me with finding of Dominant irregular right upper lobe and right apical pulmonary mass suspicious for primary bronchogenic neoplasm until proven otherwise. A right lower lobe mass as well as a ground glass nodule in the left upper lobe are also noted, possibly represent metastatic disease. Indeterminate though suspicious left adrenal nodules concerning for metastatic disease -CT abdomen/pelvics 11/01/16 noted a review by me with finding of Right lower lobe nodule. Left adrenal nodules are identified concerning for metastatic disease until proven otherwise -Interventional radiology plan for CT guided biopsy today 11/02/16 -Radiation /medical Oncology consultations appreciated Labile benign hypertension Continue Lopressor 25 mg every 12 hours Hyperlipidemia Continue statin 10 mg at bedtime DVT prophylaxis: Bilateral SCDs GI prophylaxis: PPI Ivan Emery MD Nov 02, 2016 11:41
[2016-11-02] MEDS: PANTOPRAZOLE SODIUM 40 MG VIAL IV PUSH SCH (11:57)
[2016-11-02] MEDS ORDERED: fentaNYL CITRATE 250 MCG/5 ML AMP ONE (14:02)
[2016-11-02] MEDS ORDERED: MIDAZOLAM HCL 5 MG/5 ML VIAL ONE (14:02)
[2016-11-02] MEDS ORDERED: LIDOCAINE 1%/EPINEPHrine 1:100,000 SOLN 20 ML VIAL ONE (14:11)
--- NOTE | 2016-11-02 15:18 | RADRPT ---
EXAM DATE/TIME: 11/02/2016 14:21 [facility] COMPARISON: No previous studies available for comparison. INDICATIONS : Right lung biopsy SEDATION TIME: 15 minutes BIOPSY SITE: Right lung MEDICATION(S): 1.) 2 mg midazolam (Versed) IV 2.) 100 mcg fentanyl (Sublimaze) IV DEVICE(S): 1.) 18 gauge Wilson blunt needle 2.) 20 gauge Temno core biopsy needle MEDICAL HISTORY : Carcinoma, breast. SURGICAL HISTORY : Mastectomy, left. ENCOUNTER: Initial ACUITY: 1 day PAIN SCORE: 0/10 LOCATION: chest A total of four core specimen(s) were obtained and sent to the laboratory for pathologic evaluation. PROCEDURE: 1. CT guided lung biopsy. Prior to the procedure informed consent was obtained. Any appropriate prior imaging studies were rev iewed. Using automated exposure control and adjustment of the mA and/or kV according to patient size, radiation dose was kept as low as reasonably achievable to obtain optimal diagnostic quality images. DICOM format image data is available electronically for review and comparison. The site was prepped in a sterile fashion. Full sterile technique was used, including cap, mask, win rile gloves and gown and a large sterile sheet. Hand hygiene and 2% chlorhexidine and/or betadine/al cohol prep was utilized per protocol for cutaneous antisepsis. The skin and subcutaneous tissues wer e infiltrated with local anesthetic solution. Under CT guidance an 18 gauge blunt needle was placed down to the right lung mass with supine approac h. 4 cores were obtained and submitted for pathological violation. Follow-up CT scan reveals no pneumothorax. Conscious sedation was performed with the prescribed dosages and duration as above in the presence of an independent trained radiology nurse to assist in the monitoring of the patient. EKG and oximetry remained stable throughout the procedure. The patient tolerated the procedure well and there were no complications. The patient was sent to Radiology Outpatient Unit in stable condition. CONCLUSION: Uncomplicated CT guided biopsy. Pathology is pending. Gerard Hardy MD FACR on November 02, 2016 at 15:14 Board Certified Radiologist. This report was verified electronically.
--- NOTE | 2016-11-02 16:43 | RADRPT ---
EXAM DATE/TIME: 11/02/2016 16:22 [facility] COMPARISON: CT NEEDLE BIOPSY LUNG, RIGHT, November 02, 2016, 14:21. INDICATIONS : Post right lung biopsy. MEDICAL HISTORY : None. SURGICAL HISTORY : None. ENCOUNTER: Initial ACUITY: 1 day PAIN SCORE: 0/10 LOCATION: Right chest FINDINGS: Status post biopsy of a mass in the right upper lung. There is no pneumothorax. The left lung is flaco sly clear. The heart size is within normal limits. CONCLUSION: No pneumothorax. Ravinder Newton MD on November 02, 2016 at 16:40 Board Certified Radiologist. This report was verified electronically.
--- NOTE | 2016-11-02 19:19 | HHI.NSPN ---
History Chief Complaint: Cerebral mass Interval History 76-year-old female presents to the emergency room from her primary care physician after MRI reveals a left anterior cerebellar mass impinging on the fourth ventricle and brain stem without hydrocephalus. Patient complains of occasional mild sharp pain in the left cervical occipital region. No significant headache. No blurred vision diplopia speech difficulty memory loss confusion. No complaint of pain and weakness or numbness in the extremities or difficulty with ambulation. No chest pain or cough or shortness of breath. Exam Results Vital Signs Date Time Temp Pulse Resp B/P Pulse Ox O2 Delivery O2 Flow Rate FiO2 11/02/16 17:05 97.7 60 19 165/77 95 Intake and Output 11/01/16 11/01/16 11/02/16 08:00 16:00 00:00 Intake Total 280 ml 375 ml 480 ml Balance 280 ml 375 ml 480 ml Physical Examination Resp: Clear, nonlabored Neurologic: Awake and alert oriented conversant and appropriate Extraocular movements intact Patient motor movement symmetric Sensation intact light touch all extremities Strength normal major flexion and extension groups all extremities Last Impressions Lung Biopsy CT 11/02/16 1405 Signed Impressions: Service Date/Time: Wednesday, November 02, 2016 14:21 - CONCLUSION: Uncomplicated CT guided biopsy. Pathology is pending. Gerard Hardy MD FACR Chest X-Ray 11/02/16 0000 Signed Impressions: Service Date/Time: Wednesday, November 02, 2016 16:22 - CONCLUSION: No pneumothorax. Ravinder Newton MD Chest CT 10/31/16 0000 Signed Impressions: Service Date/Time: Tuesday, November 01, 2016 08:44 - CONCLUSION: 1. Dominant irregular right upper lobe and right apical pulmonary mass suspicious for primary bronchogenic neoplasm until proven otherwise. 2. A right lower lobe mass as well as a groundglass nodule in the left upper lobe are also noted, possibly represent metastatic disease. 3. Indeterminate though suspicious left adrenal nodules concerning for metastatic disease. 4. Sclerotic bone lesions are nonspecific and may reflect bone islands versus tiny sclerotic metastases. Robert Toscano MD Abdomen/Pelvis CT 10/31/16 0000 Signed Impressions: Service Date/Time: Tuesday, November 01, 2016 08:40 - CONCLUSION: 1. Probable tiny bone island at T10 however nonspecific. 2. Right lower lobe nodule. 3. Left adrenal nodules are identified concerning for metastatic disease until proven otherwise. Robert Toscano MD Medical Decision Making Impression and Plan Impression: 1. Left cerebellar mass with fourth ventricle and mild brainstem compression. No definite obstructive hydrocephalus on recent imaging study 2. Pulmonary lesion. 3. Remote History of breast cancer Plan: Findings were discussed at length with the patient today. Findings and treatment plan also discussed with radiation oncology in the patient's room. Biopsy of the lung lesion accomplished this afternoon. We will await the results of the biopsy prior to final decision-making. She states that she has close friends who can monitor her at home. She appears stable for discharge home from a neurosurgical standpoint. She can be maintained on a low-dose Decadron at this point. Based on biopsy results if initial radiation therapy as elected, she will likely start this early next week. I will see her back next week for outpatient follow-up. Fernando Corona MD Nov 02, 2016 19:19
[2016-11-02] MEDS: ATORVASTATIN 10 MG TAB PO SCH (20:17)
[2016-11-03] VITALS: BP 121/72; PULSE 57; RESP 18; TEMP 96; O2SAT 97
[2016-11-03] MEDS: DEXAMETHASONE SOD PHOS 4 MG/ML VIAL IV PUSH SCH ×2 (03:26→08:24)
[2016-11-03 08:00] VITALS: BP 162/76; PULSE 63; RESP 20; TEMP 95.3; O2SAT 97
[2016-11-03] MEDS: PANTOPRAZOLE SODIUM 40 MG VIAL IV PUSH SCH (08:24)
[2016-11-03] MEDS: METOPROLOL TARTRATE 25 MG TAB PO SCH (08:24)
[2016-11-03] MEDS: SODIUM CHLORIDE 0.9% FLUSH 10 ML FLUSH IV FLUSH SCH (08:25)
--- NOTE | 2016-11-03 09:18 | PD.ONC.PN ---
Subjective Subjective Remarks Afebrile overnight Tolerated lung biopsy very well yesterday Wants to go home Objective Data Date Time Temp Pulse Resp B/P Pulse Ox O2 Delivery O2 Flow Rate FiO2 11/03/16 08:00 95.3 63 20 162/76 97 11/03/16 00:00 96.0 57 18 121/72 97 11/02/16 20:00 96.6 56 18 123/59 96 11/02/16 17:05 97.7 60 19 165/77 95 11/02/16 16:15 62 16 123/62 95 11/02/16 15:45 60 16 123/62 93 11/02/16 15:30 65 16 128/69 95 11/02/16 15:15 64 16 120/60 93 11/02/16 15:00 97.5 65 16 125/62 97 11/02/16 12:00 97.0 58 17 179/91 96 11/03/16 11/03/16 11/03/16 07:00 15:00 23:00 Intake Total 480 ml Balance 480 ml Result Diagram: 11/01/16 0444 11/01/16 0444 Imaging Studies Last 24 hours Impressions Lung Biopsy CT 11/02/16 1405 Signed Impressions: Service Date/Time: Wednesday, November 02, 2016 14:21 - CONCLUSION: Uncomplicated CT guided biopsy. Pathology is pending. Gerard Hardy MD FACR Administered Medications Medications (Trade) Dose Ordered Sig/Anu Route PRN Reason Start Time Stop Time Status Last Admin Dose Admin Sodium Chloride (NS Flush) 2 ml BID IV FLUSH 10/31/16 21:00 11/03/16 08:25 Acetaminophen (Tylenol) 650 mg Q6H PRN PO PAIN SCALE 1 TO 2 10/31/16 17:00 11/01/16 20:20 Dexamethasone Sodium Phosphate (Decadron Inj) 4 mg Q6H IV PUSH 11/01/16 09:00 11/03/16 08:24 Pantoprazole Sodium (Protonix Inj) 40 mg Q24H IV PUSH 11/01/16 09:00 11/03/16 08:24 Atorvastatin Calcium (Lipitor) 10 mg HS PO 10/31/16 21:00 11/02/16 20:17 Metoprolol Tartrate (Lopressor) 25 mg Q12HR PO 10/31/16 21:00 11/03/16 08:24 Objective Remarks GENERAL: Elderly female, sitting up in chair at bedside doing crossword puzzle SKIN: Warm and dry. HEAD: Normocephalic. EYES: No injection or drainage. NECK: Supple, trachea midline. CARDIOVASCULAR: + S1/S2 RESPIRATORY: Clear posteriorly. Breathing unlabored. GASTROINTESTINAL: Abdomen soft, non-tender, nondistended. EXTREMITIES: No cyanosis. No edema. NEUROLOGICAL: No obvious focal deficit. Awake, alert, and oriented x3. Assessment/Plan Problem List: (1) Brain mass Status: Acute Plan: 11/03: Tolerated lung biopsy well yesterday. Okay for discharge on low dose decadron from oncology standpoint. Patient will follow up in clinic next week for path results. h/o breast cancer with left mastectomy --MRI, 10/31 ([facility]) showed left cerebellar lesion-->2.8x2.9cm --on Decadron, --NS following. Assessment 76y/o female with brain mass, h/o breast cancer. Attending Statement no new c/o s/p bx yesterday Path ispending OK to d/c Fu as outpt Linda Rose Nov 03, 2016 09:18 Josiah Neal MD Nov 03, 2016 18:51
--- NOTE | 2016-11-03 09:54 | HHI.PR ---
Subjective Remarks Follow-up left brain mass and now possible lung cancer with metastases 11/01/16-patient seen and examined, denies any acute event overnight and still says she is fine. CT chest as well as abdomen/pelvics performed this morning 11/02/16-patient seen and examined, denies any headaches, visual change or unsteadiness. Plan for CT-guided biopsy of the lung today 11/03/16-patient seen and examined, she is status post CT-guided lung biopsy and denies any complaints. Patient has been clear for discharge by both neurosurgery as well as oncology. Objective Vitals Vital Signs Date Time Temp Pulse Resp B/P Pulse Ox O2 Delivery O2 Flow Rate FiO2 11/03/16 08:00 95.3 63 20 162/76 97 11/03/16 00:00 96.0 57 18 121/72 97 11/02/16 20:00 96.6 56 18 123/59 96 11/02/16 17:05 97.7 60 19 165/77 95 11/02/16 16:15 62 16 123/62 95 11/02/16 15:45 60 16 123/62 93 11/02/16 15:30 65 16 128/69 95 11/02/16 15:15 64 16 120/60 93 11/02/16 15:00 97.5 65 16 125/62 97 11/02/16 12:00 97.0 58 17 179/91 96 I/O 11/02/16 11/02/16 11/02/16 11/03/16 11/03/16 11/03/16 07:00 15:00 23:00 07:00 15:00 23:00 Intake Total 360 ml 100 ml 240 ml 480 ml Balance 360 ml 100 ml 240 ml 480 ml Intake Oral 360 ml 100 ml 240 ml 480 ml # Voids 2 4 2 3 # Bowel Movements 0 0 0 Result Diagram: 11/01/16 0444 11/01/16 0444 Imaging Last Impressions Lung Biopsy CT 11/02/16 1405 Signed Impressions: Service Date/Time: Wednesday, November 02, 2016 14:21 - CONCLUSION: Uncomplicated CT guided biopsy. Pathology is pending. Gerard Hardy MD FACR Chest X-Ray 11/02/16 0000 Signed Impressions: Service Date/Time: Wednesday, November 02, 2016 16:22 - CONCLUSION: No pneumothorax. Ravinder J. Siragusa, MD Chest CT 10/31/16 0000 Signed Impressions: Service Date/Time: Tuesday, November 01, 2016 08:44 - CONCLUSION: 1. Dominant irregular right upper lobe and right apical pulmonary mass suspicious for primary bronchogenic neoplasm until proven otherwise. 2. A right lower lobe mass as well as a groundglass nodule in the left upper lobe are also noted, possibly represent metastatic disease. 3. Indeterminate though suspicious left adrenal nodules concerning for metastatic disease. 4. Sclerotic bone lesions are nonspecific and may reflect bone islands versus tiny sclerotic metastases. Robert Toscano MD Abdomen/Pelvis CT 10/31/16 0000 Signed Impressions: Service Date/Time: Tuesday, November 01, 2016 08:40 - CONCLUSION: 1. Probable tiny bone island at T10 however nonspecific. 2. Right lower lobe nodule. 3. Left adrenal nodules are identified concerning for metastatic disease until proven otherwise. Robert Toscano MD Objective Remarks GENERAL: NAD SKIN: Warm and dry. HEAD: Normocephalic. EYES: No scleral icterus. No injection or drainage. NECK: Supple, trachea midline. No JVD or lymphadenopathy. CARDIOVASCULAR: Regular rate and rhythm without murmurs, gallops, or rubs. RESPIRATORY: Breath sounds equal bilaterally. No accessory muscle use. GASTROINTESTINAL: Abdomen soft, non-tender, nondistended. MUSCULOSKELETAL: No cyanosis, or edema. BACK: Nontender without obvious deformity. No CVA tenderness. Procedures none A/P Problem List: (1) Brain mass ICD Code: G93.9 Status: Acute (2) Benign labile hypertension ICD Code: I10 Status: Acute (3) Hyperlipidemia ICD Code: E78.5 Status: Acute (4) Lung mass ICD Code: R91.8 Status: Acute Assessment and Plan 76-year-old female with Left cerebellar lesion, Brain MRI with finding of impinging on the fourth ventricle without sign of hydrocephalus Patient with a history of breast cancer Appreciate input from neurosurgery Medical/radiation oncology consultation appreciated Continue Decadron IV scheduled however was switched to by mouth prednisone on discharge PT to treat and eval Patient will follow outpatient with neurosurgery Lung mass with possible metastases -CT chest 11/01/16 with finding of Dominant irregular right upper lobe and right apical pulmonary mass suspicious for primary bronchogenic neoplasm until proven otherwise. A right lower lobe mass as well as a ground glass nodule in the left upper lobe are also noted, possibly represent metastatic disease. Indeterminate though suspicious left adrenal nodules concerning for metastatic disease -CT abdomen/pelvics 11/01/16 with finding of Right lower lobe nodule. Left adrenal nodules are identified concerning for metastatic disease until proven otherwise -Patient is status post Uncomplicated CT guided biopsy. Pathology is pending -Radiation /medical Oncology consultations appreciated Patient has been cleared for discharge by oncology Labile benign hypertension Continue Lopressor 25 mg every 12 hours Hyperlipidemia Continue statin 10 mg at bedtime DVT prophylaxis: Bilateral SCDs GI prophylaxis: PPI Ivan Emery MD Nov 03, 2016 09:54
[2016-11-03] MEDS ORDERED: METO25TA3 PO (09:55)
[2016-11-03] MEDS ORDERED: DEXA0.5T PO (10:04)
--- NOTE | 2016-11-03 10:09 | HHI.DS ---
Discharge Summary Admission Date Oct 31, 2016 at 17:37 Discharge Date: Nov 03, 2016 Admitting Diagnosis (1) Brain mass ICD Code: G93.9 (2) Benign labile hypertension ICD Code: I10 (3) Hyperlipidemia ICD Code: E78.5 (4) Lung mass ICD Code: R91.8 Procedures none Brief History - From Admission 76-year-old female with a history of breast cancer was seen today ED by her PCP for evaluation of abnormal brain MRI with finding of a brain mass. Patient states, 2 days ago she woke up feeling generally weak associated with some malaise throughout the day and she also noticed some unsteady gait with ambulation however has no dizziness, vertigo or lightheadedness. On Monday, 06/17 she continued to feel weak and tired with more persistent gait unsteadiness. Today, 10/31/16 patient decided to go see her PCP will send her for MRI of the brain. With the finding of brain mass, patient was sent to the ED for further evaluation. She denies feeling sick, shortness of breath or chest pain. She has no visual change or headaches. CBC/BMP: 11/01/16 0444 11/01/16 0444 Significant Findings Laboratory Tests Test 10/31/16 11/01/16 16:45 04:44 White Blood Count 11.5 TH/MM3 (4.0-11.0) Activated Partial 21.2 SEC Thromboplast Time (24.3-30.1) Red Blood Count 3.82 MIL/MM3 (4.00-5.30) Neutrophils (%) (Auto) 81.5 % (16.0-70.0) Neutrophils # (Auto) 7.9 TH/MM3 (1.8-7.7) Blood Urea Nitrogen 23 MG/DL (7-18) Estimat Glomerular Filtration 55 ML/MIN (>89) Rate Random Glucose 140 MG/DL (74-106) Albumin 3.3 GM/DL (3.4-5.0) Imaging Last Impressions Lung Biopsy CT 11/02/16 1405 Signed Impressions: Service Date/Time: Wednesday, November 02, 2016 14:21 - CONCLUSION: Uncomplicated CT guided biopsy. Pathology is pending. Gerard Hardy MD FACR Chest X-Ray 11/02/16 0000 Signed Impressions: Service Date/Time: Wednesday, November 02, 2016 16:22 - CONCLUSION: No pneumothorax. Ravinder Newton MD Chest CT 10/31/16 0000 Signed Impressions: Service Date/Time: Tuesday, November 01, 2016 08:44 - CONCLUSION: 1. Dominant irregular right upper lobe and right apical pulmonary mass suspicious for primary bronchogenic neoplasm until proven otherwise. 2. A right lower lobe mass as well as a groundglass nodule in the left upper lobe are also noted, possibly represent metastatic disease. 3. Indeterminate though suspicious left adrenal nodules concerning for metastatic disease. 4. Sclerotic bone lesions are nonspecific and may reflect bone islands versus tiny sclerotic metastases. Robert Toscano MD Abdomen/Pelvis CT 10/31/16 0000 Signed Impressions: Service Date/Time: Tuesday, November 01, 2016 08:40 - CONCLUSION: 1. Probable tiny bone island at T10 however nonspecific. 2. Right lower lobe nodule. 3. Left adrenal nodules are identified concerning for metastatic disease until proven otherwise. Robert Toscano MD PE at Discharge GENERAL: NAD SKIN: Warm and dry. HEAD: Normocephalic. EYES: No scleral icterus. No injection or drainage. NECK: Supple, trachea midline. No JVD or lymphadenopathy. CARDIOVASCULAR: Regular rate and rhythm without murmurs, gallops, or rubs. RESPIRATORY: Breath sounds equal bilaterally. No accessory muscle use. GASTROINTESTINAL: Abdomen soft, non-tender, nondistended. MUSCULOSKELETAL: No cyanosis, or edema. BACK: Nontender without obvious deformity. No CVA tenderness. Hospital Course Patient was admitted and was found to have a lesion mass in the left cerebellar region for which neurosurgery was consulted and she was started on IV Decadron. Follow-up imaging studies including CT chest and CT abdomen/pelvics reveal masses for which patient underwent a CT-guided lung biopsy. Medical and radiation oncology were all consulted. Secondary to poorly controlled blood pressure, patient was started on Lopressor 25 mg every 12 hours with improvement of BP. DVT and GI prophylaxis were provided. PT was consulted. Prior to discharge, patient's condition improve and vitals remained stable. She will follow outpatient with medical oncology, neurosurgery as well as radiation oncology. At this time lung biopsy pathology is pending. We Will discharge patient on a low dose of Decadron 1 mg every 12 hours 7 days. Pt Condition on Discharge: Stable Discharge Disposition: Discharge Home Discharge Time: > 30 minutes Discharge Instructions DIET: Follow Instructions for: Heart Healthy Diet Activities you can perform: Regular-No Restrictions Follow up Referrals: Neurosurgery with Fernando Corona MD Oncology with Josiah Neal MD PCP Follow-up - 1 Week New Medications: Dexamethasone (Dexamethasone) 0.5 Mg Tab 1 MG PO Q12HR Infection #14 TAB Metoprolol Tartrate (Metoprolol Tartrate) 25 Mg Tab 25 MG PO Q12HR Blood Pressure Management #60 Ref 3 TAB Continued Medications: Atorvastatin (Lipitor) 10 Mg Tab 10 MG PO HS Cholesterol Management #30 Ref 0 TAB Ivan Emery MD Nov 03, 2016 10:09
[2016-11-03] MEDS ORDERED: DEXAMETHASONE 0.5 MG TAB PO SCH (21:00)
== END 2016-11-03 11:44 | disposition home or self-care (01) | DRG 180 ==
LOC: NEPE 16:19 → NEDA 17:37 → N07B 19:24
PROVIDERS: ADMIT Hospitalist; ATTEND Hospitalist
PROC: 0BBK3ZX Excision of Right Lung, Percutaneous Approach, Diagnostic (ICD-10-PCS; principal; 2016-10-31)
DX: C34.91 Malignant neoplasm of unspecified part of right bronchus or lung (principal); G93.6 Cerebral edema; G93.5 Compression of brain; C79.72 Secondary malignant neoplasm of left adrenal gland; D49.6 Neoplasm of unspecified behavior of brain; Z85.3 Personal history of malignant neoplasm of breast; E78.5 Hyperlipidemia, unspecified; I10 Essential (primary) hypertension; I25.10 Atherosclerotic heart disease of native coronary artery without angina pectoris; M19.90 Unspecified osteoarthritis, unspecified site; Z79.899 Other long term (current) drug therapy; Z87.891 Personal history of nicotine dependence; Z90.12 Acquired absence of left breast and nipple
CPT/HCPCS: 32405; 71010; 71260; 74177; 77012; 80053; 85025; 85610; 85730; 86300; 86304; 86850; 86900; 86901; 88305; 88333; 88341; 88342; 93005; 96374; C9113; J1100; J2250; J3010; Q9967

== ENCOUNTER 2016-11-22 06:42 | Day surgery (SDC) | payer MEDICARE ==
[~2016-11-22] VITALS: Ht 167.6 cm; Wt 68.2 kg
[~2016-11-22 06:42] MED LIST changes: -ALL220TA PO; -ATOR10 PO; -CENTTAB9 PO; +DEXA0.5T PO; -FISH300C2 PO; +LIPI10TA PO; -LORT5TAB PO; -MELO15TA2 PO; -META800 PO; +METO25TA3 PO; -OYST500T77 PO; +blood pressure pill
[2016-11-22 07:06] VITALS: BP 151/85; PULSE 58; RESP 18; TEMP 98.4; O2SAT 97
[2016-11-22] MEDS ORDERED: ceFAZolin 2 GM PREMIX 50 ML - implanted port/tunneled catheter insertion IV SCH (07:15)
[2016-11-22] MEDS ORDERED: CHLORHEXIDINE GLUCONATE 2 % 1 PACK (2 CLOTHS) TOPICAL SCH (07:15)
[2016-11-22] MEDS ORDERED: VANCOMYCIN 1000 MG/NS 250 ML - implanted port/tunneled catheter IV SCH ×2 (07:15)
[2016-11-22] MEDS ORDERED: MUPIROCIN 2% OINT 1 APPLIC/GM SYR EACH NARE SCH (07:15)
[2016-11-22] MEDS ORDERED: POVIDONE IODINE 5% (ANTISEPSIS KIT) 4 APPLICATIONS EACH NARE SCH (07:15)
[2016-11-22] MEDS ORDERED: ACET-898 (07:34)
[2016-11-22] MEDS ORDERED: FLUC100T2 PO (07:34)
[2016-11-22] MEDS ORDERED: PROC10TA PO (07:34)
[2016-11-22] MEDS ORDERED: MIDAZOLAM HCL 5 MG/5 ML VIAL ONE (08:49)
[2016-11-22] MEDS ORDERED: fentaNYL CITRATE 250 MCG/5 ML AMP ONE (08:50)
[2016-11-22] MEDS ORDERED: LIDOCAINE 1%/EPINEPHrine 1:100,000 SOLN 20 ML VIAL ONE (09:14)
[2016-11-22 10:15] VITALS: BP 155/59; PULSE 76; RESP 18; TEMP 97.6; O2SAT 99
--- NOTE | 2016-11-22 10:27 | PD.RAD ---
Post Procedure Progress Note Pre Procedure Diagnosis: (1) Lung cancer Post Procedure Diagnosis: (1) Lung cancer Procedure Date: Nov 22, 2016 Supervising Radiologist: Joseph Moses Proceduralist/Assist: RT Thanh(R) Anesthesia: Local, Conscious Sedation Plan of Activity Patient to Unit: ROPU Patient Condition: Good See PACS Report for procedural detail/treatment Central Venous Access Device Procedure 1 Internal Jugular Infusaport Placement single lumen Dutch: 8 Joseph Moses MD Nov 22, 2016 10:27
[2016-11-22 10:30] VITALS: BP 141/62; PULSE 76; RESP 18; O2SAT 99
[2016-11-22] MEDS ORDERED: SODIUM CHLORIDE 0.9% FLUSH 10 ML FLUSH IVF PRN (10:30)
[2016-11-22 11:00] VITALS: BP 137/60; PULSE 72; RESP 18; O2SAT 99
[2016-11-22 11:30] VITALS: BP 138/67; PULSE 74; RESP 18; O2SAT 99
[2016-11-22 12:00] VITALS: BP 148/67; PULSE 76; RESP 18; O2SAT 99
--- NOTE | 2016-11-22 13:17 | RADRPT ---
EXAM DATE/TIME: 11/22/2016 08:09 [facility] COMPARISON: No previous studies available for comparison. INDICATIONS : Patient presents with lung cancer in need of port placment for chemotherapy treatment. MEDICAL HISTORY : Right lunc cancer Brain mets HTN Arthritis COPD PAD SURGICAL HISTORY : Left mastectomy Hemicabectomy ENCOUNTER: Initial ACUITY: 3 weeks PAIN SCORE: 0/10 LOCATION: N/A FLUORO TIME: 1.6 minutes IMAGE SERIES: 1 SEDATION TIME: 45 minutes ACCESS: Left internal jugular vein SEDATION: 1.) 2 mg midazolam (Versed) IV 2.) 100 mcg fentanyl (Sublimaze) IV Prophylactic antibiotics were administered with appropriate pre-procedure timing. Vancomycin within 2 hours of procedure, Ancef (or alternative) within 1 hour of procedure. DEVICE: 1. [address] [place] single lumen Smart port CT w/ vortex PROCEDURE : 1. Continuous pulse oximetry and EKG monitoring. 2. Intravenous conscious sedation. 3. Ultrasound guidance for venous access. 4. Fluoroscopic guided implantable central venous port placement. The patient was placed supine. The neck was prepped in sterile fashion. Full sterile technique was u sed, including cap, mask, sterile gloves and gown, and a large sterile sheet. Hand hygiene and 2% ch lorhexidine Betadine was utilized per protocol for cutaneous antisepsis with appropriate dry time for site. The skin and subcutaneous tissues were infiltrated with local anesthetic solution. Under direct ultrasound guidance, central venous access was accomplished in the targeted vessel. The ultrasound images depicting access guidance were stored and saved to PACS for permanent record. A s ubcutaneous pocket was created using blunt dissection. The port was introduced to the pocket. The c atheter tubing was fed through a subcutaneous tunnel to the venotomy site. The catheter tubing was c ut to a suitable length and then was introduced through a valved Peel-Away sheath and positioned with catheter tubing tip at the cavo-atrial junction level. The pocket incision was closed with subcutic ular Vicryl suture. Steri-Strips were applied. The port was flushed and locked with heparin solutio n per protocol. Sterile dressing was applied to the site. The patient tolerated the procedure well. Conscious sedation was performed with the prescribed dosages and duration as above in the presence of an independent trained radiology nurse to assist in the monitoring of the patient. EKG and oximetry remained stable throughout the procedure. The patient tolerated the procedure well and there were no complications. The patient was sent to post anesthesia recovery in stable condition. CONCLUSION: Uncomplicated ultrasound and fluoroscopic guided implanted central venous port catheter placement as described in detail above. An 8 Tongan Power port was placed. Joseph Moses MD on November 22, 2016 at 13:15 Board Certified Radiologist. This report was verified electronically.
== END 2016-11-22 12:15 | disposition home or self-care (01) ==
LOC: HROP 06:42 → HRIP 06:46 → HROP 12:15
PROVIDERS: ATTEND Internal Medicine Hematology & Oncology
DX: C34.91 Malignant neoplasm of unspecified part of right bronchus or lung (principal); C79.31 Secondary malignant neoplasm of brain; I10 Essential (primary) hypertension; J44.9 Chronic obstructive pulmonary disease, unspecified; I73.9 Peripheral vascular disease, unspecified; M19.90 Unspecified osteoarthritis, unspecified site
CPT/HCPCS: 36561; 76937; 77001; 99152; 99153; C1769; C1788; C1887; J0690; J1642; J2250; J3010; J3370; J7050

== ENCOUNTER → 2016-12-16 | Outpatient (CLI) | payer MEDICARE ==
[~2016-12-16] MED LIST changes: +ACET-898; +FLUC100T2 PO; +PROC10TA PO
[2016-12-16 12:42] LABS: POTASSIUM 4.2 MEQ/L (3.5-5.1)
[2016-12-16 12:45] LABS: BICARBONATE 25.9 MEQ/L (21.0-32.0)
== END ==
LOC: PLAB 11:37
PROVIDERS: ATTEND Internal Medicine Interventional Cardiology
DX: E87.5 Hyperkalemia (principal); R60.0 Localized edema
CPT/HCPCS: 36415; 80048